=== PATIENT | male | born 1950 | race Caucasian/White ===

== ENCOUNTER 2018-01-22 08:10 | Emergency (ER) | payer MEDICARE ==
[2018-01-22] MEDS ORDERED: NS 0.9% 1000 ML* 1,000 ML IV ONE (08:35)
--- NOTE | 2018-01-22 08:36 | ED ---
Respiratory - HPI Summary HPI Summary: A 67 y/o F presents to ED with c/o non-productive cough onset two days ago. Pt has had an ongoing cough for 3-4 weeks. He saw his PCP and did a course of Doxy. Two days ago, he woke up with fever and diaphoresis. He experiences OWEN secondary to coughing so hard. He took Oxycodone which is not helping. Denies CP , SOB. Denies daily medications. PMHx: walking PNA years ago, prostate CA years ago. Denies PMHx: HTN, DM. - History of Current Complaint Chief Complaint: EDUpperRespComplaint Stated Complaint: FEVER Time Seen by Provider: 01/22/18 08:34 Hx Obtained From: Patient Onset/Duration: Lasting Days, Still Present Initial Severity: Mild Current Severity: Mild Pain Intensity: 0 Character: Cough (Nonproductive) Sputum Amount: None Associated Signs and Symptoms: Fever, Diaphoresis - Allergy/Home Medications Allergies/Adverse Reactions: Allergies Allergy/AdvReac Type Severity Reaction Status Date / Time Penicillins Allergy Hives Verified 01/22/18 08:15 Home Medications: Home Medications Codeine Phosphate/Guaifenesin [Guaifen-Codeine 100-10 mg/5 ml] 5 ml PO 01/22/18 [History] guaiFENesin LIQ* [Robitussin*] 5 ml PO DAILY PRN 01/22/18 [History Confirmed 05/11] PMH/Surg Hx/FS Hx/Imm Hx Previously Healthy: No Endocrine/Hematology History: Denies: Hx Diabetes Cardiovascular History: Denies: Hx Hypertension, Hx Pacemaker/ICD History: Reports: Other Problems/Disorders - HX PROSTATE CA Denies: Hx Renal Disease Sensory History: Denies: Hx Contacts or Glasses, Hx Hearing Aid Opthamlomology History: Denies: Hx Contacts or Glasses Psychiatric History: Denies: Hx Panic Disorder - Cancer History Cancer Type, Location and Year: PROSTATE [place] Hx Chemotherapy: No Hx Radiation Therapy: No - Surgical History Surgery Procedure, Year, and Place: 2006 RADICAL PROSTATECTOMY [facility] [place]. [place]- SURGERY ON SKULL TO REMOVE FOREIGN OBJECT:PT STATES DID NOT GO TO BRAIN AND NOT METAL Hx Anesthesia Reactions: No - Immunization History Immunizations Up to Date: Yes Infectious Disease History: No Infectious Disease History: Denies: Traveled Outside the [place] in Last 30 Days - Family History Known Family History: Positive: None - Pt denies. Negative: Cardiac Disease, Hypertension, Diabetes - Social History Occupation: Employed Full-time Lives: Alone Alcohol Use: Weekly Alcohol Amount: 2/WEEK Substance Use Type: Reports: None Smoking Status (MU): Never Smoked Tobacco Review of Systems Positive: Fever, Skin Diaphoresis Negative: Chest Pain Positive: Cough. Negative: Shortness Of Breath Positive: Headache - due to cough All Other Systems Reviewed And Are Negative: Yes Physical Exam - Summary Physical Exam Summary: VITAL SIGNS: Reviewed. GENERAL: Patient is a well-developed and nourished MALE who is lying comfortable in the stretcher. Patient is not in any acute respiratory distress. HEAD AND FACE: No signs of trauma. No ecchymosis, hematomas or skull depressions. No sinus tenderness. EYES: PERRLA, EOMI x 2, No injected conjunctiva, no nystagmus. EARS: Hearing grossly intact. Ear canals and tympanic membranes are within normal limits. MOUTH: Oropharynx within normal limits. NECK: Supple, trachea is midline, no adenopathy, no JVD, no carotid bruit, no c- spine tenderness, neck with full ROM. CHEST: Symmetric, no tenderness at palpation LUNGS: Clear to auscultation bilaterally. Positive crackles in R lung. CVS: Regular rate and rhythm, S1 and S2 present, no murmurs or gallops appreciated. ABDOMEN: Soft, non-tender. No signs of distention. No rebound, no guarding, and no masses palpated. Bowel sounds are normal. EXTREMITIES: FROM in all major joints, no edema, no cyanosis or clubbing. NEURO: Alert and oriented x 3. No acute neurological deficits. Speech is normal and follows commands. SKIN: Dry and warm Triage Information Reviewed: Yes Vital Signs On Initial Exam: Initial Vitals Temp Pulse Resp BP Pulse Ox 96.4 F 82 20 137/87 97 01/22/18 08:11 01/22/18 08:11 01/22/18 08:11 01/22/18 08:11 01/22/18 08:11 Vital Signs Reviewed: Yes Diagnostics - Vital Signs Vital Signs Temp Pulse Resp BP Pulse Ox 01/22/18 08:21 88 99 01/22/18 08:11 96.4 F 82 20 137/87 97 - Laboratory Result Diagrams: 01/22/18 08:42 01/22/18 08:42 Lab Statement: Any lab studies that have been ordered have been reviewed, and results considered in the medical decision making process. - Radiology CXR Xray Interpretation: Positive (See Comments) - IMPRESSION: HYPERINFLATION, CONSISTENT WITH COPD. NO ACTIVE CARDIOPULMONARY DISEASE. ED provider has reviewed this report. Radiology Interpretation Completed By: Radiologist - EKG 0838 Cardiac Rate: NL - 80bpm EKG Rhythm: Sinus Rhythm ST Segment: Normal - no ST elevation EKG Comparison: No Significant Change - from 03/26/07 Re-Evaluation - Re-Evaluation 1 Re-Evaluation Time: 11:30 Change: Improved Comment: Discussing results with pt and plans for dispo. Disposition - Course Assessment/Plan: A 67 y/o F presents to ED with c/o non-productive cough onset two days ago. Pt has had an ongoing cough for 3-4 weeks. He saw his PCP and did a course of Doxy. Two days ago, he woke up with fever and diaphoresis. He experiences OWEN secondary to coughing so hard. He took Oxycodone which is not helping. Denies CP, SOB. Denies daily medications. PMHx: walking PNA years ago, prostate CA years ago. Denies PMHx: HTN, DM. Blood work without any significant abnormality except for glucose of 105. The wbc's is normal and also the CRP is normal. Troponin 0.01. Chest x-ray impression: Hyperinflation , consistent with COPD no active cardiopulmonary disease. I believe that the patient is having some sort of bronchitis, however the patient be having this intermittent productive and dry cough for more than 3 weeks therefore he will be developing a prescription for azithromycin. The patient already has medications for cough. I discussed all the findings and test results with the patient. Patient was instructed to return to the emergency room immediately if any of the symptoms return or worsens. Plan of care was discussed with the patient and understands and agrees. All questions were answered at patient satisfaction. There were no further complaints or concerns. Lung exam before discharge: CTA B/L. Good air exchange. No wheezing or crackles heard. CVS: S1 and S2 present. No murmurs appreciated. Patient is alert and oriented x 3. Patient is hemodynamically stable. Patient will be discharged home with follow up PCP in the next 2-3 days - Differential Dx - Cardiopulmonary Differential Diagnoses - Cardiopulmonary: Bronchitis, CHF, Chest Wall Pain, Lower Resp Infection, Pleurisy - Diagnoses Provider Diagnoses: Bronchitis Discharge - Sign-Out/Discharge Documenting (check all that apply): Patient Departure - DC - Discharge Plan Condition: Stable Disposition: HOME Prescriptions: Albuterol HFA INHALER* [Ventolin HFA Inhaler*] 1 puff INH Q4H PRN #1 mdi PRN Reason: Wheezing Azithromycin TAB* [Zithromax TAB (Z-LEONA) 250 mg #6 tabs] 250 mg PO DAILY #4 tab Patient Education Materials: Azithromycin (By mouth), Acute Bronchitis (ED) Referrals: Wesley Bradley MD [Primary Care Provider] - 3 Days Additional Instructions: Please follow up with your primary care provider in 3 days. Return to the ED if you experience new or worsening symptoms. - Billing Disposition and Condition Condition: STABLE Disposition: Home - Attestation Statements Document Initiated by Scribe: Yes Documenting Scribe: Bianca Machado Provider For Whom Ivaibe is Documenting (Include Credential): Dr. Oracio Skelton MD Scribe Attestation: Bianca Parish, scribed for Dr. Oracio Skelton MD on 01/23/18 at 0815. Scribe Documentation Reviewed: Yes Provider Attestation: The documentation as recorded by the Bianca alan accurately reflects the service I personally performed and the decisions made by me, Dr. Oracio Skelton MD
[2018-01-22 08:54] LABS: ABS Basophils 0.1 10^3/ul (0-0.2); ABS Eosinophils 0.4 10^3/ul (0-0.6); ABS Lymphocytes 1.2 10^3/ul (1.0-4.8); ABS Monocytes 0.3 10^3/ul (0-0.8); ABS Neutrophils 4.1 10^3/ul (1.5-7.7); ABS Nucleated RBC 0 10^3/ul; Eosinophil % 6.8 % (0-6); Hematocrit 46 % (42-52); Hemoglobin 15.4 g/dl (14.0-18.0); Lymphocyte % 20.3 % (25-47); Mean Corpuscular HGB Conc 34 g/dl (31-36); Mean Corpuscular Hemoglobin 29 pg (27-31); Mean Corpuscular Volume 85 fL (80-94); Mean Platelet Volume 7.8 um3 (7.4-10.4); Nucleated Red Blood Cells % 0.2; Platelet Count 303 10^3/ul (150-450); Red Blood Count 5.38 10^6/ul (4.00-5.40); Red Cell Distribution Width 14 % (10.5-15); White Blood Count 6.1 10^3/ul (3.5-10.8)
[2018-01-22 09:12] LABS: EGFR Non-African American 74.1 (>60)
[2018-01-22] MEDS ORDERED: Azithromycin TAB* 250 MG PO ONE (09:51)
--- NOTE | 2018-01-22 10:07 | RAD ---
HISTORY: Cough COMPARISONS: November 15, 2017 VIEWS: 4: Frontal dual-energy and lateral views of the chest. FINDINGS: CARDIOMEDIASTINAL SILHOUETTE: The cardiomediastinal silhouette is normal. MOHINDER: The mohinder are normal. PLEURA: The costophrenic angles are sharp. No pleural abnormalities are noted. LUNG PARENCHYMA: There is hyperinflation with flattening of the diaphragm and expansion of the AP diameter of the chest. ABDOMEN: The upper abdomen is clear. There is no subphrenic gas. BONES AND SOFT TISSUES: No bone or soft tissue abnormalities are noted. OTHER: None. IMPRESSION: HYPERINFLATION, CONSISTENT WITH COPD. NO ACTIVE CARDIOPULMONARY DISEASE.
[2018-01-22 11:31] VITALS: BP 112/74
== END 2018-01-22 11:30 | disposition home or self-care (01) ==
LOC: ED 08:10
DX: J40 Bronchitis, not specified as acute or chronic (principal); Z87.01 Personal history of pneumonia (recurrent); Z85.46 Personal history of malignant neoplasm of prostate; Z88.0 Allergy status to penicillin
CPT/HCPCS: 36415; 71046; 80053; 83605; 83880; 84484; 85025; 86140; 87040; 93005; 99283; A9270-GY